=== PATIENT | male | born 1995 | race Caucasian/White ===

== ENCOUNTER 2020-04-19 18:07 | Emergency (ER) | payer BC, SELFPAY ==
[2020-04-19 18:21] VITALS: BP 142/60; PULSE 80; RESP 18; TEMP 37.3; O2SAT 100
--- NOTE | 2020-04-19 18:22 | ED.SKABFB ---
HPI - Skin/Abscess/Foreign Bdy General Chief complaint: Extremity Injury, Lower Stated complaint: Extremity Injury, Lower Time Seen by Provider: 04/19/20 18:12 Source: patient and RN notes reviewed Mode of arrival: ambulatory Limitations: no limitations History of Present Illness HPI narrative: 25 old male presents with concern for glass in the bottom of his right foot. Reports he stepped on a piece of glass from a bottle that was broken several nights ago. Reports being able to remove a small piece of glass at home, was unable to fully remove it. He denies any surrounding erythema, edema, induration. Denies fever, decreased range of motion or sensation in the foot or digits. MD complaint: foreign body Related Data Home Medications Medication Instructions Recorded Confirmed No Home Medications 04/19/20 04/19/20 Allergies Allergy/AdvReac Type Severity Reaction Status Date / Time No Known Allergies Allergy Verified 04/19/20 18:26 Review of Systems Review of Systems: Narrative: CONSTITUTIONAL: Denies malaise, chills, sweats, or fever. SKIN: Possible glass in the bottom of his right foot MUSCULOSKELETAL: Denies muscle skeletal pain, decreased range of motion NEUROLOGIC: Denies numbness, weakness All systems reviewed & are unremarkable except as noted in HPI and below PMFSH Comments At time of signature, agree with nursing past medical, surgical, social and family history. There is no relevant family history pertinent to the presenting complaint Exam Narrative: Exam Narrative: GENERAL: Well-appearing, well-nourished, and in no acute distress. HEAD: Normocephalic EYES: PERRLA, conjunctivae clear ENT: Mucous membranes moist. NECK: Supple. CHEST: No respiratory distress. Speaks in full sentences. HEART: Regular rate and rhythm. EXTREMITIES: Right foot and digits have normal range of motion, no edema, normal strength and sensation. SKIN: Warm, dry, no rash. Less than 0.5 cm break in skin noted to the pedal aspect of the right foot beneath the fifth digit with small visible foreign body noted NEURO: Alert and oriented x3. PSYCH: Normal mood and affect Course Course Emergency Course: Patient is aware of diagnosis, understands and agrees to treatment plan. Anticipatory guidance given. Patient agrees to follow-up as directed and is aware of reasons to seek care at the emergency department. Portions of this record may have been created with voice recognition software Vital Signs Vital signs: Vital Signs Temperature 99.2 F 10/29/20 18:21 Pulse Rate 80 04/19/20 18:21 Respiratory Rate 18 04/19/20 18:21 Blood Pressure 142/60 H 04/19/20 18:21 Pulse Oximetry 100 04/19/20 18:21 Temperature 99.2 F 04/19/20 18:27 Pulse Rate 80 04/19/20 18:27 Respiratory Rate 18 04/19/20 18:27 Blood Pressure 142/60 H 04/19/20 18:27 Pulse Oximetry 100 04/19/20 18:27 Reviewed. Procedures Foreign Body Removal Foreign Body #1: Foreign Body Removal Date: 04/19/20 Foreign Body Removal Time: 18:40 Time Out Performed: yes Site: right and lower extremity Description of foreign body: other (Glass) Sedation/Analgesia: none Technique: manual removal Confirmed by:: direct visualization Complications: none Neurovascular: normal distal pulse, normal capillary fill, distal light touch sensation intact, distal motor function normal and no change from pre-procedure MDM - Skin/Abscess/Foreign Bdy MDM Narrative Medical decision making narrative: Exam findings show no acute concerns or changes; patient is non-toxic appearing and is in no distress. Patient is appropriate for outpatient treatment and follow-up. Critical Care Time Critical Care Time Critical Care Time: No Discharge Plan Discharge Clinical Impression: Foreign body of skin of plantar aspect of right foot Patient Disposition: Home, Self-Care Condition: Stable Instructions: Soft
[2020-04-19 18:27] VITALS: BP 142/60; PULSE 80; RESP 18; TEMP 37.3; O2SAT 100
== END 2020-04-19 18:58 | disposition home or self-care (01) ==
PROVIDERS: Emergency Provider Nurse Practitioner
DX: S91.341A Puncture wound with foreign body, right foot, initial encounter (principal); W25.XXXA Contact with sharp glass, initial encounter
CPT/HCPCS: 99212; A9270; G0463